=== PATIENT | male | born 1985 | race African-American/Black ===

== ENCOUNTER 2018-10-03 11:44 | Emergency (ER) | payer MEDICAID ==
[~2018-10-03] VITALS: Ht 180.3 cm; Wt 154.2 kg
[2018-10-03 12:07] VITALS: BP 125/68
[2018-10-03] MEDS ORDERED: cefTRIAXone SOD 1,000 MG VL IM ONE (13:00)
== END 2018-10-03 13:42 | disposition home or self-care (01) ==
LOC: ER 11:46
DX: J03.90 Acute tonsillitis, unspecified (principal); J20.9 Acute bronchitis, unspecified; F12.90 Cannabis use, unspecified, uncomplicated; Z87.442 Personal history of urinary calculi; Z87.891 Personal history of nicotine dependence
CPT/HCPCS: 71046; 96372; 99283; J0696

== ENCOUNTER 2018-12-14 15:49 | Emergency (ER) | payer MEDICAID ==
[~2018-12-14] VITALS: Ht 180.3 cm; Wt 149.7 kg
[2018-12-14 18:36] VITALS: BP 151/98
[2018-12-14] MEDS ORDERED: ALBUTEROL SULF 2.5 MG/0.5ML(0.5%) NEB SOLN NEB ONE (19:30)
[2018-12-14] MEDS ORDERED: IPRATROPIUM BROM 0.5 MG/2.5ML INH SOL NEB ONE (19:30)
[2018-12-14] MEDS ORDERED: methylPREDNISolone SOD SUCC 125 MG/2 ML VL IM ONE (19:30)
== END 2018-12-14 20:23 | disposition home or self-care (01) ==
LOC: ER 15:49
DX: J45.901 Unspecified asthma with (acute) exacerbation (principal); F12.10 Cannabis abuse, uncomplicated; Z87.891 Personal history of nicotine dependence
CPT/HCPCS: 71046; 94640; 96372; 99283; J2930; J7611; J7644

== ENCOUNTER 2019-02-25 18:54 | Emergency (ER) | payer MEDICAID ==
[~2019-02-25] VITALS: Ht 180.3 cm; Wt 159.7 kg
[2019-02-25 19:31] LABS: Urine Bacteria FEW /hpf (None Seen); Urine Blood 2+ /uL (Negative); Urine Specific Gravity 1.024 (1.001-1.035); Urine WBC 75 /hpf (0 - 3)
[2019-02-25] MEDS ORDERED: traMADol HCL 50 MG TAB PO ONE (20:00)
[2019-02-25 20:39] VITALS: BP 134/82
== END 2019-02-25 20:42 | disposition home or self-care (01) ==
LOC: ER 18:56
DX: N39.0 Urinary tract infection, site not specified (principal); J45.909 Unspecified asthma, uncomplicated; Z87.442 Personal history of urinary calculi; Z87.891 Personal history of nicotine dependence
CPT/HCPCS: 74176; 81001

== ENCOUNTER 2019-05-30 12:51 | Emergency (ER) | payer MEDICAID ==
[~2019-05-30] VITALS: Ht 180.3 cm; Wt 142.4 kg
[2019-05-30] MEDS ORDERED: MORPHINE SULFATE 4 MG/ML SYR/VIAL IV ONE (13:15)
[2019-05-30] MEDS ORDERED: ONDANSETRON HCL 4 MG/2 ML VIAL IV ONE (13:15)
[2019-05-30] MEDS ORDERED: HYDROmorphone HCL 2 MG/ML VL IV ONE (14:15)
[2019-05-30] MEDS ORDERED: TETANUS-DIPTH-ACEL PERTUSSIS 0.5ML SYRG IM ONE (14:30)
[2019-05-30] MEDS ORDERED: SILVER SULFADIAZINE 1 % TOPICAL CREAM 50GM TOP ONE (14:30)
[2019-05-30] MEDS ORDERED: CLINDAMYCIN 900MG IV 50 ML IV ONE (14:30)
[2019-05-30] MEDS ORDERED: PIPERACILLIN-TAZOB 3.375GM 100 ML IV ONE (14:30)
[2019-05-30] MEDS ORDERED: HYDROcodone-ACET 5/325MG TAB PO ONE (16:30)
[2019-05-30 17:01] VITALS: BP 133/84
== END 2019-05-30 17:44 | disposition home or self-care (01) ==
LOC: ER 12:53
DX: S40.021A Contusion of right upper arm, initial encounter (principal); S30.851A Superficial foreign body of abdominal wall, initial encounter; M25.562 Pain in left knee; M79.671 Pain in right foot; V29.9XXA Motorcycle rider (driver) (passenger) injured in unspecified traffic accident, initial encounter; Y93.55 Activity, bike riding; Y92.410 Unspecified street and highway as the place of occurrence of the external cause; Y99.8 Other external cause status
CPT/HCPCS: 73030; 73060; 73130; 73562; 73610; 74176; 96365; 96366; 96368; 96375; 99284; J1170; J2270; J2405; J2543; J3490

== ENCOUNTER 2024-10-23 19:01 | Emergency (ER) | payer MEDICAID ==
[~2024-10-23] VITALS: Ht 177.8 cm; Wt 146.7 kg
--- NOTE | 2024-10-23 19:47 | ED.PDOC ---
GI ASSESSMENT HPI Comments 39 year old male came to ER due to abdominal pain. Patient has history of diabetes, has been complaining of bilateral flank/ lower abdominal pain the past 2 days. States he has been having monthly episodes of abdominal pain but no consult has ever been done. Denies any nausea, vomiting, changes in bowel habits or urinary symptoms. Chief Complaint: Abdominal Pain Time Seen by MD: 19:46 Primary Care Provider: MIREYA HERMAN Reviewed Notes: Nurses Notes Allergies: Coded Allergies: NO KNOWN ALLERGIES (Unverified , 06/14/11) Home Meds No Active Prescriptions or Reported Meds Information Source: Patient Mode of Arrival: Ambulatory Timing: Days Duration: Intermittent Prehospital treatment: None Quality: Aching Vomitus: None Stool: Normal Severity: Moderate Recent: None Recent Hx of: None Pain Location: RLQ, LLQ, Other (Bilateral flanks) Associated sign and symptoms: Abdominal Pain Past Medical History PAST MEDICAL HISTORY: DM Surgical History (Other): Hand and shoulder surgery Family History Family History: Reviewed,noncontributory to illness Social History Smoker: Non-Smoker Alcohol: Denies ETOH Use Drugs: Denies Drug Use Lives In: Home Constitutional: denies: chills, diaphoresis, fatigue, fever, malaise, sweats, weakness, others EENTM: denies: blurred vision, double vision, ear bleeding, ear discharge, ear drainage, ear pain, ear ringing, eye pain, eye redness, hearing loss, mouth pain, mouth swelling, nasal discharge, nose bleeding, nose congestion, nose pain, photophobia, tearing, throat pain, throat swelling, voice changes, others Respiratory: denies: cough, hemoptysis, orthopnea, SOB at rest, shortness of breath, SOB with excertion, stridor, wheezing, others Cardiovascular: denies: chest pain, dizzy spells, diaphoresis, Dyspnea on exertion, edema, irregular heart beat, left arm pain, lightheadedness, palpitations, PND, syncope, others Gastrointestinal: reports: abdominal pain; denies: abdomen distended, blood streaked bowels, constipated, diarrhea, dysphagia, difficulty swallowing, hematemesis, melena, nausea, poor appetite, poor fluid intake, rectal bleeding, rectal pain, vomiting, others Genitourinary: denies: burning, dysuria, flank pain, frequency, hematuria, incontinence, penile discharge, penile sore, pain, testicle pain, testicle swelling, urgency, others Neurological: denies: dizziness, fainting, headache, left sided numbness, left sided weakness, numbness, paresthesia, pre-existing deficit, right sided numbness, right sided weakness, seizure, speech problems, tingling, tremors, weakness, others Musculoskeletal: denies: back pain, gout, joint pain, joint swelling, muscle pain, muscle stiffness, neck pain, others Integumetry: denies: bruises, change in color, change in hair/nails, dryness, laceration, lesions, lumps, rash, wounds, others Allergic/Immunocompromised: denies: Difficulty Healing, Frequent Infections, Hives, Itching, others Hematologic/Lymphatic: denies: anemia, blood clots, easy bleeding, easy bruising, swollen glands, others Endocrine: denies: excessive hunger, excessive sweating, excessive thirst, excessive urination, flushing, intolerance to cold, intolerance to heat, unexplained weight gain, unexplained weight loss, others Psychiatric: denies: anxiety, bipolar disorder, depression, hopeless, panic disorder, schizophrenia, sleepless, suicidal, others Physical Exam General Appearance: No Apparent Distress, Normal HEENT: Normal ENT Inspection, Pharynx Normal, TMs Normal Neck: Full Range of Motion, Non-Tender, Normal, Normal Inspection Respiratory: Chest Non-Tender, Lungs Clear, No Accessory Muscle Use, No Respiratory Distress, Normal Breath Sounds Cardiovascular: No Edema, No JVD, No Murmur, No Gallop, Normal Peripheral Pulses, Regular Rate/Rhythm Breast Exam: Deferred Gastrointestinal: Diffuse, No Organomegaly, No Pulsatile Mass, Normal Bowel Sounds, Soft, Tenderness Genitalia: Deferred Pelvic: Deferred Rectal: Deferred Extremities: No calf tenderness, Normal capillary refill, Normal inspection, Normal range of motion, Non-tender, No pedal edema Musculoskeletal : Apperance: Normal Neurologic: Alert, inward toll operator II-XII nml as Tested, No Motor Deficits, Normal Affect, Normal Mood, No Sensory Deficits Cerebellar Function: Normal Reflexes: Normal Skin: Dry, Normal Color, Warm Lymphatic: No Adenopathy Was a procedure done? Was a procedure done?: No GI differential Dx Differential Diagnosis: Bowel Obstruction, Cholangitis, Cholecystitis, Constipation, Diverticular disease, Gastritis/PUD, Gastroenteritis, Hernia, Hepatitis, Inflammatory BD, Pancreatitis, UTI, Urolithiasis, Food Poisoning, Ischemic Bowel, Mass, Esophageal Varicies, Stress Ulcer, Kidney Stone X-Ray, Labs, Meds, VS Vital Signs Date Time Temp Pulse Resp B/P (MAP) Pulse Ox O2 Delivery O2 Flow Rate FiO2 10/23/24 21:48 97.9 81 15 127/78 (94) 97 97.9 10/23/24 21:48 81 15 97 Room Air 10/23/24 19:29 98.3 85 20 139/88 (105) 96 98.3 Lab Test 10/23/24 19:55 10/23/24 19:48 10/23/24 19:25 Range/Units White Blood Count 11.2 H 4.4-10.8 10^3/uL Red Blood Count 6.02 H 4.5-5.90 10^6/uL Hemoglobin 15.9 13.5-17.5 g/dL Hematocrit 49.3 41.0-53.0 % Mean Corpuscular Volume 82.0 80.0-100.0 fL Mean Corpuscular Hemoglobin 26.5 L 28.0-32.0 pg Mean Corpuscular Hemoglobin Concent 32.3 32.0-36.0 g/dL Red Cell Distribution Width 14.3 11.8-14.3 % Platelet Count 232 140-450 10^3/uL Mean Platelet Volume 7.3 6.9-10.8 fL Neutrophils (%) (Auto) 72.9 37.0-80.0 % Lymphocytes (%) (Auto) 18.9 10.0-50.0 % Monocytes (%) (Auto) 6.2 0.0-12.0 % Eosinophils (%) (Auto) 1.5 0.0-7.0 % Basophils (%) (Auto) 0.5 0.0-2.0 % Neutrophils # (Auto) 8.1 1.6-8.6 10 ^3/uL Lymphocytes # (Auto) 2.1 0.4-5.4 10 ^3/uL Monocytes # (Auto) 0.7 0-1.3 10 ^3/uL Eosinophils # (Auto) 0.2 0-0.8 10 ^3/uL Basophils # (Auto) 0.1 0-0.2 10 ^3/uL Nucleated Red Blood Cells 0.0 % Sodium Level 139 136-145 mmol/L Potassium Level 4.0 3.5-5.1 mmol/L Chloride Level 106 98-107 mmol/L Carbon Dioxide Level 26 20-31 mmol/L Anion Gap 7 5-15 Blood Urea Nitrogen 12 9-23 mg/dL Creatinine 1.06 0.700-1.30 mg/dL Glomerular Filtration Rate Calc 93 >90 mL/min BUN/Creatinine Ratio 11.3 10.0-20.0 Serum Glucose 115 H 74-106 mg/dL Calcium Level 9.5 8.7-10.4 mg/dL Total Bilirubin 0.3 0.2-1.0 mg/dL Aspartate Amino Transferase (AST) 23 13-40 U/L Alanine Aminotransferase (ALT) 43 H 7-40 U/L Alkaline Phosphatase 82 46-116 U/L Total Protein 7.6 5.7-8.2 g/dL Albumin 4.7 3.2-4.8 g/dL Lipase 40 12-53 U/L Urine Color Light-yellow Yellow Urine Clarity Clear Clear Urine pH 6.0 5.0-9.0 Urine Specific [place] 1.021 1.001-1.035 Urine Protein 1+ H Negative Urine Ketones Negative Negative Urine Blood 1+ H Negative /uL Urine Nitrite Negative Negative Urine Bilirubin Negative Negative Urine Urobilinogen Normal Negative mg/dL Urine Leukocyte Esterase Negative Negative /uL Urine RBC 8 0 - 3 /hpf Urine Microscopic WBC < 1 0-3 /HPF Urine Squamous Epithelial Cells None seen <5 /hpf Urine Bacteria None seen None Seen /hpf Urine Glucose Normal Normal mg/dL POC Glucose 107 H 70-106 mg/dl Current Medications Medications (Trade) Dose Ordered Sig/[place]ica Route Start Time Stop Time Status Last Admin Acetaminophen/ Hydrocodone Bitart ([place] 5/325MG Tab) 1 tab ONCE ONCE PO 10/23/24 19:45 10/23/24 19:46 DC 10/23/24 21:56 Ondansetron HCl (Zofran Po) 4 mg ONCE ONCE PO 10/23/24 19:45 10/23/24 19:46 DC 10/23/24 21:57 Time of 1ST Reevaluation: 19:40 Reevaluation 1ST: Unchanged Patient Education/Counseling: Diagnosis, Treatment, Prognosis, Need For Follow Up Family Education/Counseling: No Family Present Additional Information -Reviewed patient's previous visit(s): ED physician notes on Jul, January and Feb 2015 - The following tests were ordered, and results were reviewed by me: CT abdomen / pelvis 05/30/2029 1. No gross acute post-traumatic abnormality, with evaluation partially limited given the lack of intravenous contrast. 2. Small fat containing umbilical hernia. - Additional information was gathered from interviewing the following independent Historian: - I reviewed and agreed with the following test results read by other provider: - I discussed treatments and results with medical personnel and: patient Comprehensive systems review obtained and negative except for what is stated in the HPI. Departure 1 Departure Time of Disposition: 22:40 Impression: Primary Impression: Chronic abdominal pain Disposition: HOME / SELF CARE / HOMELESS Condition: Good e-Prescriptions No Active Prescriptions or Reported Meds Discharged With: Self Critical Care Note Critical Care Time?: No Stability Stability form required: No Heart Score Heart Score: Heart Score Response (Comments) Value History N/A 0 EKG N/A 0 Age N/A 0 Risk Factors N/A 0 Troponin N/A 0 Total 0 I personally scribed for RE BUENO MD ([email or web address]) on 10/23/24 at 19:47. Electr onically submitted by Cornel Palacios ([email or web address]). I personally scribed for RE BUENO MD ([email or web address]) on 10/23/24 at 19:49. Candy ctronically submitted by Cornel Palacios ([email or web address]). RE BUENO MD Oct 23, 2024 19:47
[2024-10-23 19:50] LABS: Urine Bacteria None Seen /hpf (None Seen)
[2024-10-23 20:05] LABS: Basophils # (auto) 0.1 10 ^3/uL (0-0.2); Basophils % (auto) 0.5 % (0.0-2.0); Eosinophils # (auto) 0.2 10 ^3/uL (0-0.8); Eosinophils % (auto) 1.5 % (0.0-7.0); Hematocrit 49.3 % (41.0-53.0); Hemoglobin 15.9 g/dL (13.5-17.5); Lymphocytes # (auto) 2.1 10 ^3/uL (0.4-5.4); Lymphocytes % (auto) 18.9 % (10.0-50.0); Mean Corpuscular Hemoglobin 26.5 pg (28.0-32.0); Mean Corpuscular Hgb Conc. 32.3 g/dL (32.0-36.0); Monocytes # (auto) 0.7 10 ^3/uL (0-1.3); Monocytes % (auto) 6.2 % (0.0-12.0); Neutrophils # (auto) 8.1 10 ^3/uL (1.6-8.6); Neutrophils % (auto) 72.9 % (37.0-80.0); Platelet Count (auto) 232 10^3/uL (140-450); Red Blood Cells 6.02 10^6/uL (4.5-5.90); Red Cell Distribution Width 14.3 % (11.8-14.3); White Blood Cell 11.2 10^3/uL (4.4-10.8)
[2024-10-23 20:11] LABS: Urine Blood 1+ /uL (Negative); Urine Clarity Clear (Clear); Urine Color Light-Yellow (Yellow); Urine Protein, UAD 1+ (Negative); Urine Specific Gravity 1.021 (1.001-1.035); Urine Squamous Epithelial Cell None Seen /hpf (<5); Urine Urobilinogen Normal (Negative); Urine WBC < 1 /HPF (0-3)
[2024-10-23 20:23] LABS: Albumin 4.7 g/dL (3.2-4.8); Alkaline Phosphatase 82 U/L (46-116); Anion Gap 7 (5-15); Aspartate Aminotransferase 23 U/L (13-40); BUN/Creatinine Ratio 11.3 (10.0-20.0); Blood Urea Nitrogen 12 mg/dL (9-23); Calcium 9.5 mg/dL (8.7-10.4); Carbon Dioxide 26 mmol/L (20-31); Chloride 106 mmol/L (98-107); Lipase 40 U/L (12-53); Sodium 139 mmol/L (136-145); Total Protein 7.6 g/dL (5.7-8.2)
[2024-10-23 20:24] LABS: Alanine Aminotransferase 43 U/L (7-40); Bilirubin, Total 0.3 mg/dL (0.2-1.0); Glucose 115 mg/dL (74-106)
--- NOTE | 2024-10-23 21:47 | DVH ---
Indication: abdominal pain Technique: CT axial images of the abdomen and pelvis are obtained without contrast. Coronal and sagit leeanne reformats were obtained. Radiation Dose Information: CTDI volume is 25 mGy. Dose-length product is 1528 mGy*cm Comparison: None FINDINGS: There is limited interpretation of the abdomen and pelvis without administration of intravenous contr ast. Lung bases demonstrate no pleural effusion. Adrenal glands, spleen, pancreas unremarkable in shape. Liver unremarkable in shape. No CT evidence for cholelithiasis. No hydronephrosis or nephrolithiasis. Stomach is distended. Small bowel loops are normal in caliber. Moderate volume stool in the colon. Colonic diverticula. Normal appendix. Bladder partially distended. No free pelvic fluid. No inguinal lymphadenopathy. No aggressive osseous process. IMPRESSION: 1. No evidence for obstructive uropathy. 2. Colonic diverticular disease. 3. Gastric distention 4. Other findings as described.
[2024-10-23 21:48] VITALS: BP 127/78; PULSE 81; RESP 15; TEMP 97.9; O2SAT 97
[2024-10-23] MEDS: HYDROcodone-ACET 5/325MG TAB PO ONE (21:56)
[2024-10-23] MEDS: ONDANSETRON ODT 4 MG TAB PO ONE (21:57)
== END 2024-10-23 23:33 | disposition home or self-care (01) ==
LOC: ER 19:01
DX: R10.30 Lower abdominal pain, unspecified (principal); G89.29 Other chronic pain; E11.9 Type 2 diabetes mellitus without complications; Z98.890 Other specified postprocedural states
CPT/HCPCS: 36415; 74176; 80053; 81001; 82947; 83690; 85025; 99284; Q0162; 82962